=== PATIENT | male | born 1980 | race Caucasian/White ===

== ENCOUNTER 2017-06-03 21:40 | Emergency (ER) | payer BC ==
[~2017-06-03] VITALS: Ht 172.7 cm; Wt 115.8 kg
[~2017-06-03 21:40] MED LIST: ANAPROX275 MG OR; AZITHROMYCIN250 MG PO; BACTRIM DS1 TAB PO; BENADRYL 50MG C50 MG PO; NAPROSYN500 MG PO; ROBITUSSIN AC10 ML PO; VICODIN1 TAB OR; ZPAK PO
[2017-06-03] MEDS ORDERED: TYLENOL325 M2 (21:47)
[2017-06-03] MEDS ORDERED: XALATAN 0.005%2.5 ML OP (21:48)
[2017-06-03] MEDS ORDERED: ALKA-SELTZER PLUS C1 PO (21:48)
[2017-06-03 22:28] LABS: HEMATOCRIT 45.8 % (39.0-50.0); HEMOGLOBIN 15.8 g/dl (14.0-18.0); IMMATURE GRANULOCYTES 0.5 % (0.0-1.0); MEAN CELL VOLUME 88.9 fL CALC (80.0-100.0); MEAN CORPUSCULAR HGB 30.7 pG CALC (26.0-32.0); MEAN CORPUSCULAR HGB CONC 34.5 g/L CALC (32.0-36.0); NEUT# 4.72 thou/uL (1.82-7.42); RED BLOOD COUNT 5.15 mill/uL (4.70-6.10); RED CELL DISTRI WIDTH 11.9 % (11.5-15.5)
[2017-06-03 22:34] LABS: INFLUENZA A NONE DETECTED (NONE DETECT); INFLUENZA B NONE DETECTED (NONE DETECT)
[2017-06-03 22:43] LABS: ALBUMIN 4.3 g/dL (3.2-5.0); ALKALINE PHOSPHATASE 108 u/l (38-126); ANION GAP 17 (6-22 (CALC)); BILIRUBIN, TOTAL 1.1 mg/dL (0.0-1.4); BUN 13 mg/dL (9-20); BUN/CREATININE RATIO 14 (12-20 (CALC)); CALCIUM 9.3 mg/dL (8.4-10.2); CARBON DIOXIDE 21 mmol/l (22-30); CHLORIDE 105 mmol/l (95-108); CREATININE 0.9 mg/dL (0.7-1.3); GFR > 60 ML/MIN (>=60 (CALC)); GFR FOR AFR.AMER. > 60 ML/MIN (>=60 (CALC)); GLUCOSE 151 mg/dL (75-110); SGOT/AST 40 u/l (17-59); SGPT/ALT 82 u/l (21-72); SODIUM 138 mmol/l (137-146); TOTAL PROTEIN 7.4 g/dL (6.3-8.2)
[2017-06-03 22:44] LABS: URINE BILIRUBIN - DIPSTICK NEGATIVE (NEGATIVE); URINE BLOOD DIPSTICK NEGATIVE (NEGATIVE); URINE CLARITY CLEAR; URINE COLOR YELLOW; URINE GLUCOSE - DIPSTICK NEGATIVE (NEGATIVE); URINE KETONE NEGATIVE (NEGATIVE); URINE LEUK ESTERASE NEGATIVE (NEGATIVE); URINE NITRITE - DIPSTICK NEGATIVE (Negative); URINE PH 5.5 (4.5-8.0); URINE PROTEIN - DIPSTICK NEGATIVE (NEG-TRACE); URINE UROBILINOGEN - DIPSTICK 0.2 E.U./dL (0.2)
[2017-06-03 23:35] VITALS: BP 125/78
== END 2017-06-03 23:22 | disposition home or self-care (01) | DRG 866 ==
LOC: ED 21:40
PROVIDERS: Emergency Medicine
DX: B34.9 Viral infection, unspecified (principal); F95.2 Tourette's disorder

== ENCOUNTER 2019-09-13 | Emergency (ER) | payer BC ==
[~2019-09-13] MED LIST changes: +ALKA-SELTZER PLUS C1 PO; +TYLENOL325 M2; +XALATAN 0.005%2.5 ML OP
== END 2019-09-13 09:13 | disposition home or self-care (01) | DRG 153 ==
DX: J06.9 Acute upper respiratory infection, unspecified (principal)

== ENCOUNTER 2021-06-20 20:56 | Emergency (ER) | payer BC ==
[~2021-06-20] VITALS: Ht 172.7 cm; Wt 95.0 kg
[2021-06-20 22:52] LABS: HEMATOCRIT 44.4 % (39.0-50.0); HEMOGLOBIN 15.2 g/dl (14.0-18.0); IMMATURE GRANULOCYTES 0.5 % (0.0-5.0); MEAN CELL VOLUME 89.2 fL CALC (80.0-100.0); MEAN CORPUSCULAR HGB 30.5 pG CALC (26.0-32.0); MEAN CORPUSCULAR HGB CONC 34.2 g/dL CAL (32.0-36.0); NEUT# 7.08 thou/uL (1.82-7.42); RED BLOOD COUNT 4.98 mill/uL (4.70-6.10); RED CELL DISTRI WIDTH 12.2 % (11.5-15.5)
[2021-06-20 23:33] VITALS: BP 142/92
== END 2021-06-20 23:33 | disposition home or self-care (01) | DRG 179 ==
LOC: ED 20:56
PROVIDERS: Family Medicine
DX: U07.1 COVID-19 (principal)

== ENCOUNTER 2022-01-19 18:08 | Emergency (ER) | payer OTHER ==
[~2022-01-19] VITALS: Ht 177.8 cm; Wt 122.7 kg
[2022-01-19 18:24] VITALS: BP 149/106
[2022-01-19 18:31] VITALS: BP 139/98
[2022-01-19 19:01] VITALS: BP 137/90
[2022-01-19 19:31] VITALS: BP 124/90
[2022-01-19 19:38] LABS: URINE BILIRUBIN - DIPSTICK NEGATIVE (NEGATIVE); URINE BLOOD DIPSTICK NEGATIVE (NEGATIVE); URINE COLOR YELLOW; URINE GLUCOSE - DIPSTICK 250 mg/dL (NEGATIVE); URINE KETONE NEGATIVE (NEGATIVE); URINE LEUK ESTERASE NEGATIVE (NEGATIVE); URINE PH 5.5 (4.5-8.0); URINE PROTEIN - DIPSTICK NEGATIVE (NEG-TRACE); URINE SPECIFIC GRAVITY >=1.030; URINE UROBILINOGEN - DIPSTICK 0.2 E.U./dL (0.2)
[2022-01-19 19:38] LABS: HEMOGLOBIN 13.5 g/dl (14.0-18.0); IMMATURE GRANULOCYTES 0.6 % (0.0-5.0); MEAN CELL VOLUME 86.6 fL CALC (80.0-100.0); MEAN CORPUSCULAR HGB 30.6 pG CALC (26.0-32.0); MEAN CORPUSCULAR HGB CONC 35.3 g/dL CAL (32.0-36.0); NEUT# 2.87 thou/uL (1.82-7.42); RED BLOOD COUNT 4.41 mill/uL (4.70-6.10); RED CELL DISTRI WIDTH 12.3 % (11.5-15.5)
[2022-01-19 19:39] LABS: HEMATOCRIT 38.2 % (39.0-50.0)
[2022-01-19 19:40] LABS: URINE NITRITE - DIPSTICK NEGATIVE (Negative)
[2022-01-19 20:00] VITALS: BP 126/91
[2022-01-19 20:01] LABS: ALBUMIN 3.9 g/dL (3.2-5.0); ALKALINE PHOSPHATASE 111 u/l (38-126); ANION GAP 12 (6-22 (CALC)); BILIRUBIN, TOTAL 0.9 mg/dL (0.0-1.4); BUN 12 mg/dL (9-20); BUN/CREATININE RATIO 15 (12-20 (CALC)); CARBON DIOXIDE 25 mmol/l (22-30); CHLORIDE 105 mmol/l (95-108); CREATININE 0.8 mg/dL (0.7-1.3); GFR FOR AFR.AMER. > 60 ML/MIN (>=60 (CALC)); GFR OTHER RACES > 60 ML/MIN (>=60 (CALC)); POTASSIUM 3.7 mmol/l (3.5-5.1); SGOT/AST 46 u/l (17-59); SODIUM 139 mmol/l (137-146); TOTAL PROTEIN 7.2 g/dL (6.3-8.2)
[2022-01-19 20:12] VITALS: BP 126/91
== END 2022-01-19 20:29 | disposition home or self-care (01) | DRG 866 ==
LOC: ED 18:08
PROVIDERS: Nurse Practitioner
DX: B34.9 Viral infection, unspecified (principal); Z20.822 Contact with and (suspected) exposure to COVID-19

== ENCOUNTER 2022-03-16 11:59 | Emergency (ER) | payer OTHER ==
[~2022-03-16] VITALS: Ht 177.8 cm; Wt 123.0 kg
[2022-03-16] MEDS ORDERED: XALATAN 0.005%2.5 ML OU (12:10)
[2022-03-16] MEDS ORDERED: KEFLEX500 MG PO ×3 (14:40→15:01)
[2022-03-16] MEDS ORDERED: CIPROFLOXACN500 MG PO ×3 (14:40→15:01)
[2022-03-16 15:02] VITALS: BP 134/67
== END 2022-03-16 15:21 | disposition home or self-care (01) | DRG 605 ==
LOC: WW 11:59 → ED 12:22 → WW 12:22
DX: S91.332A Puncture wound without foreign body, left foot, initial encounter (principal); W45.0XXA Nail entering through skin, initial encounter; Y92.009 Unspecified place in unspecified non-institutional (private) residence as the place of occurrence of the external cause

== ENCOUNTER 2022-09-11 16:33 | Emergency (ER) | payer OTHER ==
[~2022-09-11] VITALS: Ht 177.8 cm; Wt 119.0 kg
[~2022-09-11 16:33] MED LIST changes: +CIPROFLOXACN500 MG PO; +KEFLEX500 MG PO; +XALATAN 0.005%2.5 ML OU
[2022-09-11 19:32] VITALS: BP 129/85
[2022-09-11 20:00] VITALS: BP 128/77
[2022-09-11 20:11] VITALS: BP 128/77
[2022-09-13] MEDS ORDERED: NAPROXEN500 MG PO (12:42)
== END 2022-09-11 20:20 | disposition home or self-care (01) | DRG 563 ==
LOC: ED 16:33
DX: S93.401A Sprain of unspecified ligament of right ankle, initial encounter (principal); X50.0XXA Overexertion from strenuous movement or load, initial encounter; Y92.007 Garden or yard of unspecified non-institutional (private) residence as the place of occurrence of the external cause